=== PATIENT | female | born 1975 | race Caucasian/White ===

== ENCOUNTER → 2016-06-24 | Day surgery (SDC) | payer OTHER ==
[~2016-06-24] VITALS: Ht 152.4 cm; Wt 120.2 kg
--- NOTE | 2016-06-24 11:53 | Operative Report ---
Operative/Inv Procedure Report Surgery Date: 06/24/16 Name of Procedure: D&C cryoablation of the uterus under ultrasound guidance Pre-Operative Diagnosis: Metromenorrhagia Post-Operative Diagnosis: Same Estimated Blood Loss: less than 50ml Surgeon/Data Mining Analyst: CHUCHO JONES MD Anesthesia: local monitored anesthesi Operative/Procedure Note Note: Seizure patient was taken the operating room placed prone position after adequate anesthesia patient placed in dorsolithotomy position the vagina from dorsal fashion examination under anesthesia performed the bladder was catheterized using Maynard at this point CO2 tenaculum was placed on the Intralipid cervix gentle downward traction cervix was dilated 29 Hegar trocar curettage endometrial lining performed sharp curettage and cervical lining was performed 2 specimen sent to pathology at this point bladder was filled 150 mL normal saline on ultrasound guidance with the all cryoprobe into the uterus hemostasis was apparent 8 minutes on each side cryoablation was performed the probe was heated and removed on since removed from the vagina patient was returned spine position awakened from anesthesia and transferred recovery room awake alert with counts correct
--- NOTE | 2016-06-24 14:22 | ULTRASOUND REPORT ---
EXAMINATION: Intraoperative ultrasound CLINICAL INFORMATION: Menometrorrhagia COMPARISON: None TECHNIQUE: Intraoperative ultrasound was utilized by Dr. Cui for intraoperative cryoablation with dilatation and curettage. 8 images were saved to PACS. FINDINGS/IMPRESSION: Transabdominal imaging of the pelvis demonstrates a well-distended bladder. Linear echogenic focus within the endometrial canal potentially represents surgical instrumentation. Please see operative note for details.
== END ==
LOC: STS 01:02 → XRY 10:00
DX: N92.1 Excessive and frequent menstruation with irregular cycle (principal); J45.909 Unspecified asthma, uncomplicated
CPT/HCPCS: 76998; 88305; J0131; J2250